=== PATIENT | female | born 1960 | race Caucasian/White ===

== ENCOUNTER 2023-03-18 09:12 | Emergency (ER) | payer OTHER, SELFPAY ==
[2023-03-18 09:20] VITALS: BP 101/68; PULSE 86; RESP 16; TEMP 36.7; O2SAT 97; BMI 30.1
== END 2023-03-18 10:36 | disposition left against medical advice (07) ==
PROVIDERS: Emergency Provider Family Medicine; PCP Family Medicine
DX: Z53.21 Procedure and treatment not carried out due to patient leaving prior to being seen by health care provider (principal)

== ENCOUNTER 2023-03-20 14:21 | Outpatient (CLI) | payer OTHER, SELFPAY ==
--- NOTE | 2023-03-20 14:40 | CRLHL7_ITS ---
For Patients: As a result of the Century Cures Act, medical imaging exams and procedure reports are released immediately into your electronic medical record. You may view this report before your referring provider. If you have questions, please contact your health care provider. BILATERAL SCREENING MAMMOGRAM WITH COMPUTER-AIDED DETECTION TECHNIQUE: CC and MLO views were obtained. These mammographic images have been obtained using full-field digital technique. These mammographic images were interpreted with the benefit of computer-aided detection. COMPARISON FILM: 09/24/21, 09/21/18, 07/10/17. FINDINGS: There are scattered areas of fibroglandular density IMPRESSION: There is no radiographic evidence for malignancy. ASSESSMENT: BI-RADS Category 1: Negative RECOMMENDATION: Routine screening mammogram in 1 year. A lay language report of this examination will be provided to the patient. Herbie Samuel M.D. Diagnostic Radiologist [email or web address] DARVIN/thom / be/Dictated by: Herbie Samuel MD @ 03/23/2023 8:36:00 AM (Electronically Signed)
== END 2023-03-20 14:22 | disposition home or self-care (01) ==
LOC: MAMMO 14:22
PROVIDERS: PCP Family Medicine; Visit Provider Family Medicine
DX: Z12.31 Encounter for screening mammogram for malignant neoplasm of breast (principal)
CPT/HCPCS: 77067

== ENCOUNTER 2023-03-31 14:30 | Outpatient (RCR) | payer OTHER, SELFPAY | END 2023-06-19 16:16 | disposition home or self-care (01) | PROVIDERS: PCP Family Medicine; Visit Provider Family Medicine | DX: M76.61 Achilles tendinitis, right leg (principal); M79.671 Pain in right foot; M62.81 Muscle weakness (generalized); M25.571 Pain in right ankle and joints of right foot; Z51.89 Encounter for other specified aftercare | CPT/HCPCS: 97110; 97161 ==

== ENCOUNTER 2024-03-21 09:46 | Outpatient (CLI) | payer OTHER, SELFPAY ==
--- OUTSIDE RECORDS SUMMARY | 2024-03-21 09:50 | XMS_ITS | Encounter Summary ---
Author Organization [facility] Address [address] [place] [address] Care Team Providers Care Securities Supervisor Name Role Phone Jordan Galeana M.D. Primary Care Provider [phone] Encounter Details Date Type Department Care Team (Late st Contact Info) Description 01/18/2024 1:20 PM CDT Ancillary Procedure Department of Family Medicine Social History Tobacco Use Types Packs/Day Years Used Date Smoking Tobacco: Never Smokeless Tobacco: Never Alcohol Use Standard Drinks/Week Comments Yes 1 (1 standard drink = 0.6 oz pur e alcohol) [facility] Utilities Answer Date Recorded In the past 12 months has e electric, gas, oil, or water company threatened to shut off services in your home? No 08/24/2023 PHQ-2 Answer Date Recorded PHQ-2 Score 0 08/24/2023 Exercise Vital Sign Answer Date Recorde d Days of Exercise per Week Not on file 2023 On average, how many minutes do you engage in exercise at this level? 30 min 08/24/2023 Hunger Vital Sign Answer Date Recorded Within the past 12 months, y ou worried that your food would run out before you got the money to buy more. Never true 08/24/19 24 Within the past 12 months, t he food you bought just didn't last and you didn't have money to get more. Never true 08/24/2023 PRAPARE - Transportation Answer Date Re corded In the past 12 months, has l ack of transportation kept you from medical appointments or from getting medications? No 03/2024 In the past 12 months, has l ack of transportation kept you from meetings, work, or from getting things needed for daily living? No 08/24/2023 Nutrition Answer Date Recorded On average, how many serving s of fruits and vegetables do you eat per day (serving size is equal to 1 cup or approximately the size of a tennis ball)? 0-2 08/24/2023 Dental Answer Date Recorded Dental: Regular Dentist No 08/24/19 Employment Answer Date Recorded Employment status Retired 08/24/2023 Housing Stability Answer Date Recorded What is your living situation today? I have a [facility] place to live 08/24/2023 Sex and Gender Information Value Date Recorded Sex Assigned at Female 08/24/2023 9:12 PM VIRTUAL ASSISTANT FOR ADVERTISERS Gender Identity Female 08/24/2023 9:12 PM VIRTUAL ASSISTANT FOR ADVERTIS[employer] Sexual Orientation Straight 08/24/2023 9: 12 PM VIRTUAL ASSISTANT FOR ADVERTIS[employer] documented as of this encounter Plan of Treatment Not on file documented as of this encounter Procedures Procedure Name Priority Date/Time Associated Diagnosis Comments FAMILY MEDICINE IMAGE EXAM Routine 01/18/2024 1:20 PM CDT documented in this encounter Results * Leg-Family Medicine Image Exam (01/18/2024 1:20 PM CDT) 01/18/2024 1:20 PM CDT Narrative IIMS - 01/18/2024 1:22 PM CDT This order has been created and auto-finalized to support the import of images acquired without order. The clinical documentation to support these images can be found on the encounter that produced images. Provider Not In System IMG NON RAD IMAGI NG PROCEDURES IIFL NA documented in this encounter Visit Diagnoses Not on filedocumented in this encounter Care Teams Securities Supervisor Relationship Specialty Start Date End Date Jordan Galeana M.D. [address] [place], [place] [address] PCP - General Family Medicine 09/17/23 documented as of this encounter
--- OUTSIDE RECORDS SUMMARY | 2024-03-21 09:50 | XMS_ITS | Encounter Summary ---
Author Organization [facility] Address [address] [place] [address] Care Team Providers Care Sleeve Setter Name Role Phone Jordan Galeana M.D. Primary Care Provider [phone] Reason for Visit * Reason Comments Other Left lower upper leg bug bite with red and tender around the area from last week and yesterday started feeling not good. Encounter Details Date Type Department Care Team (Late st Contact Info) Description 01/18/2024 1:30 PM CDT Office Visit Department of Family Medicine in [place], [place] [address] [place] [phone] Jordan Galeana M.D. [address] [place] [address] Insect Bite (Includes Tick) Nonvenomous Left Lower Leg Initial (Primary Dx) Social History Tobacco Use Types Packs/Day Years Used Date Smoking Tobacco: Never Smokeless Tobacco: Never Tobacco Cessation:Counseling Given: Yes Alcohol Use Standard Drinks/Week Comments Yes 1 (1 standard drink = 0.6 oz pur e alcohol) [facility] Utilities Answer Date Recorded In the past [...] your living situation today? I have a [facility] place to live 08/24/2023 Sex and Gender Information Value Date Recorded Sex Assigned at Female 08/24/2023 9:12 PM SPORTS BOOKMAKER Gender Identity Female 08/24/2023 9:12 PM SPORTS BOOKMAKER Sexual Orientation Straight 08/24/2023 9: 12 PM SPORTS BOOKMAKER documented as of this encounter Last Filed Vital Signs Vital Sign Reading Time Taken Comments Blood Pressure 107/71 01/18/2024 1:13 PM CDT Pulse 81 01/18/2024 1:13 PM CDT Temperature 36 ??C (96.8 ??F) 01/18/2024 1:13 PM CDT Respiratory Rate - - Oxygen Saturation - - Inhaled Oxygen Concentration - - Weight 68.5 kg (151 lb) 01/18/2024 1:13 PM CDT Height - - Body Mass Index 29.26 08/25/2023 9:10 AM SPORTS BOOKMAKER documented in this encounter Progress Notes * Jordan Galeana M.D. - 01/18/2024 1:30 PM CDT SUBJECTIVE CHIEF COMPLAINT / REASON FOR VISIT Kim Brown is a 63 y.o. female who presents for evaluation of Other (Left lower upper leg bug bite with red and tender around the area from last week and yesterday started feeling not good.). HISTORY OF PRESENT ILLNESS 63-year-old female presents today for left lower leg bug bite on Thursday, initially was very painful, then redness has spreading and tender at the area with touch. She has generally not feeling wellyesterday, no fever. She did not remove any tick from her lower leg. The following portions of the patient's history were reviewed and updated as appropriate: allergies, current medications, family history, medical history, social history, surgical history, and problem list. OBJECTIVE BP 107/71 (BP Location: Right arm, Patient Position: Lying, Cuff Size: Regular) Pulse 81 Temp 36 ??C (Temporal) Wt 68.5 kg BMI 29.26 kg/m?? PHYSICAL EXAM Constitutional General: She is not in acute distress. Skin General: Skin is warm. Findings: Rash present. Comments: Left lower leg lateral posterior middle section red angel in the center with redness surrounding the angel. No discharge. Area is mildly tender. Neurological Mental Status: She is alert. ASSESSMENT / PLAN #1 Insect Bite (Includes Tick) Nonvenomous Left Lower Leg Initial No tick removed at left lower leg, bug bite was unknown type. Unlikely tick. Will check labs, doxycycline to cover for possible bug related infection. Discussed plan as above, she agreed. - CBC with Differential, Blood; Future; Expected date: 01/18/2024 - Basic Metabolic Panel; Future; Expected date: 01/18/2024 - Basic Metabolic Panel - CBC with Differential, Blood Other orders - doxycycline hyclate (VIBRAMYCIN) 100 mg capsule; Take 1 capsule (100 mg total) by mouth 2 (two) times a day for 7 days., Starting Thu01/18/2024, Until Thu01/25/2024, Normal She has mammogram scheduled in March already at outside facility. documented in this encounter Plan of Treatment Not on file documented as of this encounter Procedures Procedure Name Priority Date/Time Associated Diagnosis Comments CBC WITH DIFFERENTIAL, B Routine 01/18/2024 1:30 PM CDT Insect Bite (Includes Tick) Nonvenomous Left Lower Leg Initial BASIC METABOLIC PANEL, S/P Routine 01/18/2024 1:30 PM CDT Insect Bite (Includes Tick) Nonvenomous Left Lower Leg Initial documented in this encounter Results * Basic Metabolic Panel (01/18/2024 1:30 PM CDT) Potassium, P 5.0 3.6 - 5.2 mmol/L 01/18/2024 3:53 PM CDT [facility] Sodium, P 138 135 - 145 mmol/L 01/18/2024 3:53 PM CDT [facility] Chloride, P 101 98 - 107 mmol/L 01/18/2024 3:53 PM CDT [facility] Bicarbonate, P 29 22 - 29 mmol/L 01/18/2024 3:53 PM CDT [facility] Anion Gap, P 8 7 - 15 01/18/2024 3:53 PM CDT [facility] BUN (Blood Urea Nitrogen), P 13 6 - 21 mg/dL 01/18/2024 3:53 PM CDT [facility] Creatinine 0.98 0.59 - 1.04 mg/dL 01/18/2024 3:53 PM CDT [facility] Estimated GFR (eGFR) 65 >=60 mL/min/BSA 01/18/2024 3:53 PM CDT NPR[facility] Comment: Estimated GFR calculated using the 2020 CKD_EPI creatinine equation. Calcium, Total, P 9.6 8.8 - 10.2 mg/dL 01/18/2024 3:53 PM CDT [facility] Glucose, P 91 70 - 140 mg/dL 01/18/2024 3:53 PM CDT [facility] Blood (Blood, Venous) 01/18/2024 1:30 PM CDT 01/18/2024 3:30 PM CDT Jordan Galeana M.D. LAB BLOOD ADD-ON [facility] [address] [facility] [place] [address], [place] NPRG [facility] [address] [place] [address] * CBC with Differential, Blood (01/18/2024 1:30 PM CDT) [facility] Hemoglobin 14.0 11.6 - 15.0 g/dL 01/18/2024 2:07 PM CDT [facility] Hematocrit 42.3 35.5 - 44.9 % 01/18/2024 2:07 PM CDT [facility] Erythrocytes 4.48 3.92 - 5.13 x10(12)/L 01/18/2024 2:07 PM CDT [facility] MCV 94.4 78.2 - 97.9 fL 01/18/2024 2:07 PM CDT [facility] RBC Distrib Width 13.2 12.2 - 16.1 % 01/18/2024 2:07 PM CDT [facility] Platelet Count 307 157 - 371 x10(9)/L 01/18/2024 2:07 PM CDT [facility] Leukocytes 5.0 3.4 - 9.6 x10(9)/L 01/18/2024 2:07 PM CDT [facility] Neutrophils 2.40 1.56 - 6.45 x10(9)/L 01/18/2024 2:07 PM CDT [facility] Lymphocytes 2.06 0.95 - 3.07 x10(9)/L 01/18/2024 2:07 PM CDT [facility] Monocytes 0.38 0.26 - 0.81 x10(9)/L 01/18/2024 2:07 PM CDT [facility] Eosinophils 0.09 0.03 - 0.48 x10(9)/L 01/18/2024 2:07 PM CDT [facility] Basophils <0.04 0.01 - 0.08 x10(9)/L 01/18/2024 2:07 PM CDT [facility] Blood (Blood, Venous) 01/18/2024 1:30 PM CDT 01/18/2024 1:43 PM CDT Jordan Galeana M.D. LAB BLOOD ADD-ON [facility] [address] [place] [address], [facility] NPRG [facility] [address] [place] [address] documented in this encounter Visit Diagnoses Diagnosis Insect Bite (Includes Tick) Nonvenomous Left Lower Leg Initial- Primary documented in this encounter Care Teams Sleeve Setter Relationship Specialty Start Date End Date Jordan Galeana M.D. [address] [place] [phone] PCP - General Family Medicine 09/17/23 documented as of this encounter
--- OUTSIDE RECORDS SUMMARY | 2024-03-21 09:50 | XMS_ITS ---
Author Organization [facility] Address [address] [place] [address] Care Team Providers Care Train Braker Name Role Phone Unavailable Unavailable Unavailable Surgery Details Not on file Complications Check Surgery Details section. Procedure Estimated Blood Loss Check Surgery Details section. Procedure Findings Check Surgery Details section. Procedure Specimens Taken Check Surgery Details section.
--- OUTSIDE RECORDS SUMMARY | 2024-03-21 09:50 | XMS_ITS | Referral Summary ---
Author Organization [facility] Address [address] [place] [address] Care Team Providers Care Beadworker Name Role Phone Jordan Galeana M.D. Primary Care Provider Source Comments Patient records contain information from all sites at [facility]. For routine questions regarding patient records, call [phone] during business hours, M-F 8:00 AM - 5:00 PM Central Time. Record requests for emergency care only can be directed to [phone] at any time.[facility] Encounters Date Type Department Care Team Description 03/14/2024 Clinical Communication Department of Radiology in [place], [place] [address] [place] [address] Zeynep Blackwood M.D. external referral MRI 01/18/2024 1:20 PM CDT Ancillary Procedure Department of Family Medicine 01/18/2024 1:30 PM CDT Office Visit Department of Family Medicine in [place], [place] [address] [place] [address] Jordan Galeana M.D. Insect Bite (Includes Tick) Nonvenomous Left Lower Leg Initial (Primary Dx) from Last 3 Months Allergies Active Allergy Reactions Criticality Noted Date Comments Amitriptyline Other (see comments) 01/22/2010 Elavil Amoxicillin-Pot Clavulanate Other (see comments) 01/22/2010 Celecoxib Diarrhea,GI intolerance 01/22/2010 celebrex Droperidol Edema, suggestive of allergic reaction, i.e., lip, tongue, or throat swelling High 01/22/2010 inapsine Ibuprofen GI intolerance 01/22/2010 Motrin Morphine Cough,Rash 01/22/2010 Neuromuscular Blockers, Steroidal Other (see comments) 03/31/2011 Had many adverse reactions from Epidural Steroid Injection Nifedipine Other (see comments),Nausea Only 11/24/2013 Propoxyphene N-Acetaminophen Diarrhea 01/22/2010 darvocet Medications Medication Sig Dispensed Refills Start Date End Date Status multivit-min/folic acid/oze904 (ALIVE WOMEN'S GUMMY VITAMINS ORAL) Take by mouth daily. Active SUMAtriptan (IMITREX) 100 mg tablet Take 1 tablet (100 mg total) by mouth as needed for migraine. May repeat dose once in 2 hours if migraine is unresolved. Do not exceed 200 mg in 24 hours. 9 tablet 11 10/12/2023 Active Active Problems Problem Noted Date Diagnosed Date Persistent Migraine Aura Wit hout Cerebral Infarction Not Intractable Without Status Migrainosus 08/25/2023 Obesity Body Mass Index 30-39.9 Adult 08/25/2023 Rhinitis Seasonal 01/22/2010 Immunizations Name Administration Dates Next Due H1N1 Inj 03/28/2012,08/16/2009 Influenza (IM) Preservative Free 04/25/2016,03/18 Influenza TIV (IM) 04/15/2017, 6,04/25/2014,2012,03/28/2012,04/14/2010,05/03/2009 Influenza, Injectable, Mdck, Preservative Free, Quadrivalent 06/02/2023,05/10/2020 Influenza, Injectable, Quadrivalent 04/17/2019 Influenza, Seasonal, Injectable 04/24/20 14,04/19/2013,03/28/2012,2008,06/08/2008,07/05/2007,08/03/2000 Influenza, Unspecified 04/17/2014 RZV (SHINGRIX) 11/14/2020,09/14/2020 Td (Adult), adsorbed 09/20/2004 Tdap 12/12/2013,09/20/2004,06/09/1996 influenza vaccine quad (FLUZONE/FLUARIX) (6 months and older)(PF) 05/12/2022,05/07/2021,04/26/2019,2017,04/13/2015 Social History Tobacco Use Types Packs/Day Years Used Date Smoking Tobacco: Never Smokeless Tobacco: Never Tobacco Cessation:Counseling Given: Yes Alcohol Use Standard Drinks/Week Comments Yes 1 (1 standard drink = 0.6 oz pur e alcohol) [facility] Utilities Answer Date Recorded In the past 12 months has th e electric, gas, oil, or water company [...] Date Recorded Dental: Regular Dentist No 08/24/19 24 Employment Answer Date Recorded Employment status Retired 08/24/2023 Housing Stability Answer Date Recorded What is your living situation today? I have a [facility] place to live 08/24/2023 Sex and Gender Information Value Date Recorded Sex Assigned at Female 08/24/2023 9:12 PM CORRECTIONAL COOK Gender Identity Female 08/24/2023 9:12 PM CORRECTIONAL COOK Sexual Orientation Straight 08/24/2023 9: 12 PM CORRECTIONAL COOK Last Filed Vital Signs Vital Sign Reading Time Taken Comments Blood Pressure 107/71 01/18/2024 1:13 PM CDT Pulse 81 01/18/2024 1:13 PM CDT Temperature 36 ??C (96.8 ??F) 01/18/2024 1:13 PM CDT Respiratory Rate 17 10/12/2023 9:46 AM CORRECTIONAL COOK Oxygen Saturation 99% 10/12/2023 9:46 AM CORRECTIONAL COOK Inhaled Oxygen Concentration - - Weight 68.5 kg (151 lb) 01/18/2024 1:13 PM CDT Height 153 cm (5' 0.24) 08/25/2023 9:10 AM CORRECTIONAL COOK Body Mass Index 29.26 08/25/2023 9:10 AM CORRECTIONAL COOK Plan of Treatment Not on file Procedures Procedure Name Priority Date/Time Associated Diagnosis Comments CBC WITH DIFFERENTIAL, B Routine 01/18/2024 1:30 PM CDT Insect Bite (Includes Tick) Nonvenomous Left Lower Leg Initial BASIC METABOLIC PANEL, S/P Routine 01/18/2024 1:30 PM CDT Insect Bite (Includes Tick) Nonvenomous Left Lower Leg Initial FAMILY MEDICINE IMAGE EXAM Routine 01/18/2024 1:20 PM CDT HPV WITH GENOTYPING, PCR, THINPREP Routine 10/12/2023 11:15 AM CORRECTIONAL COOK LIPID PANEL, S Routine 08/26/2023 9:11 AM CORRECTIONAL COOK Screening Lipid from Last 3 Months or Most Recently Relevant to Health Maintenance Results * CBC with Differential, Blood (01/18/2024 1:30 PM CDT) Hemoglobin 14.0 11.6 - 15.0 g/dL 01/18/2024 [...] CDT Jordan Galeana M.D. LAB BLOOD ADD-ON [facility] [address] [place] [address], [facility] NPRG [facility] [address] [place] [address] * Basic Metabolic Panel (01/18/2024 1:30 PM CDT) [facility] Potassium, P 5.0 3.6 - 5.2 mmol/L [...] CDT Jordan Galeana M.D. LAB BLOOD ADD-ON [facility] [address] [place] [address], [place] NPR[facility] [address] [place] [address] * Leg-Family Medicine Image Exam (01/18/2024 1:20 PM CDT) 01/18/2024 1:20 PM CDT Narrative IIMS - 01/18/2024 1:22 PM CDT This order has been created and auto-finalized to support the import of images acquired without order. The clinical documentation to support these images can be found on the encounter that produced images. Provider Not In System IMG NON RAD IMAGI NG PROCEDURES IIIL NA * (ABNORMAL) HPV with Genotyping, PCR, ThinPrep (10/12/2023 11:15 AM CORRECTIONAL COOK) HPV with Genotyping, ThinPrep, PCR Positive(A) Negative 10/14/2023 10:43 AM CORRECTIONAL COOK [facility] Comment: Positive for high risk HPV by nucleic acid amplification. Positive for one or more of the following high risk types: 16, 18, 31, 33, 35, 39, 45, 51, 52, 56, 58, 59, 66, and 68. See genotyping result. HPV High Risk type 16, PCR Negative Negative 10/14/2023 10:43 AM CORRECTIONAL COOK [facility] HPV High Risk type 18/45, PCR Negative Negative 10/14/2023 10:43 AM CORRECTIONAL COOK [facility] 10/12/2023 11:1 5 AM CORRECTIONAL COOK 10/13/2023 7:26 AM CORRECTIONAL COOK Jordan Galeana M.D. LAB MICROBIOLOGY - G ENERAL ORDERABLES [facility] [place] [address], [facility] [address] [place] [address] * (ABNORMAL) Lipid Panel (08/26/2023 9:11 AM CORRECTIONAL COOK) Triglycerides 112 mg/dL 08/26/2023 10:38 AM [facility] NPR Comment: ----REFERENCE VALUE---- Normal: <150 mg/dL Borderline High: 150-199 mg/dL High: 200-499 mg/dL Very High: > or =500 mg/dL Cholesterol, Total 266(H) mg/dL 2023 10:38 AM [facility] NPRG Comment: ----REFERENCE VALUE---- Desirable: < 200 mg/dL Borderline High: 200 - 239 mg/dL High: > or = 240 mg/dL Cholesterol, LDL, Calculated 170(H) mg/dL 08/26/2023 10:38 AM [facility] NPRG Comment: ----REFERENCE VALUE---- Desirable: <100 mg/dL Above Desirable: 100-129 mg/dL Borderline High: 130-159 mg/dL High: 160-189 mg/dL Very High: >=190 mg/dL ----ADDITIONAL INFORMATION---- LDL cholesterol calculated using the Rhoades/NIH equation. Cholesterol, HDL 77 >=50 mg/dL 08/26/19 10:38 AM [facility] NPRG Cholesterol, Non-HDL, Calculated 189(H) mg/dL 08/26/2023 10:38 AM [facility] NPRG Comment: ----REFERENCE VALUE---- Desirable: <130 mg/dL Above Desirable: 130-159 mg/dL Borderline High: 160-189 mg/dL High: 190-219 mg/dL Very High: > or =220 mg/dL Fasting (8 HR or more) Yes 08/26/2023 10:12 AM CORRECTIONAL COOK [facility] Blood (Blood, Venous) 08/26/2023 9:11 AM CORRECTIONAL COOK 08/26/2023 10:12 AM CORRECTIONAL COOK Jordan Galeana M.D. LAB BLOOD ADD-ON [facility] [address] [place] [address], [facility] NPRG [facility] [address] [place] [address] from Last 3 Months or Most Recently Relevant to Health Maintenance Care Teams Beadworker Relationship Specialty Start Date End Date Jordan Galeana M.D. [address] [place] [address] PCP - General Family Medicine 09/17/23
--- OUTSIDE RECORDS SUMMARY | 2024-03-21 09:50 | XMS_ITS | Clinical Summary ---
Author Organization [facility] Address [address] [place] [address] Care Team Providers Care Supplier Diversity Director Name Role Phone Jordan Galeana M.D. Primary Care Provider Source Comments Patient records contain information from all sites at [facility]. For routine questions regarding patient records, call [phone] during business hours, M-F 8:00 AM - 5:00 PM Central Time. Record requests for emergency care only can be directed to [phone] at any time.[facility] Allergies Active Allergy Reactions Criticality Noted Date [...] Refills Start Date End Date Status multivit-min/folic acid/ird647 (ALIVE WOMEN'S GUMMY VITAMINS ORAL) Take by [...] Index 30-39.9 Adult 08/25/2023 Rhinitis Seasonal 01/22/2010 Encounters Date Type Department Care Team Description 03/14/2024 Clinical Communication Department of Radiology in [place], [place] [address] [place] [address] Zeynep Blackwood M.D. external referral MRI 01/18/2024 1:30 PM CDT Office Visit Department of Family Medicine in [place], [place] [address] [place] [address] Jordan Galeana M.D. Insect Bite (Includes Tick) Nonvenomous Left Lower Leg Initial (Primary Dx) 01/18/2024 1:20 PM CDT Ancillary Procedure Department of Family Medicine from Last 3 Months Immunizations Name Administration Dates Next Due H1N1 Inj 03/28/2012,08/16/2009 Influenza (IM) Preservative Free 04/25/2016,03/18 Influenza TIV (IM) 04/15/2017, 6,04/25/2014,2012,03/28/2012,04/14/2010,05/03/2009 Influenza, Injectable, Mdck, Preservative Free, Quadrivalent 06/02/2023,05/10/2020 Influenza, Injectable, Quadrivalent 04/17/2019 Influenza, Seasonal, Injectable 04/24/20 14,04/19/2013,03/28/2012,2008,06/08/2008,07/05/2007,08/03/2000 Influenza, Unspecified 04/17/2014 RZV (SHINGRIX) 11/14/2020,09/14/2020 Td (Adult), adsorbed 09/20/2004 Tdap 12/12/2013,09/20/2004,06/09/1996 influenza vaccine quad (FLUZONE/FLUARIX) (6 months and older)(PF) 05/12/2022,05/07/2021,04/26/2019,2017,04/13/2015 Family History Medical History Relation Name Comments Heart attack Brother Relation Name Status Comments Brother Father Mother Social History Tobacco Use Types Packs/Day Years Used Date Smoking Tobacco: Never Smokeless Tobacco: Never Tobacco Cessation:Counseling Given: Yes Alcohol Use Standard Drinks/Week Comments Yes 1 (1 standard drink = 0.6 oz pur e alcohol) [facility] Utilities Answer Date Recorded In the [...] your living situation today? I have a [facility] place to live 08/24/2023 Sex and Gender Information Value Date Recorded Sex Assigned at Female 08/24/2023 9:12 PM SALES ENABLEMENT ANALYST Gender Identity Female 08/24/2023 9:12 PM SALES ENABLEMENT ANALYST Sexual Orientation Straight 08/24/2023 9: 12 PM SALES ENABLEMENT ANALYST Last Filed Vital Signs Vital Sign Reading Time Taken Comments Blood Pressure 107/71 01/18/2024 1:13 PM CDT Pulse 81 01/18/2024 1:13 PM CDT Temperature 36 ??C (96.8 ??F) 01/18/2024 1:13 PM CDT Respiratory Rate 17 10/12/2023 9:46 AM SALES ENABLEMENT ANALYST Oxygen Saturation 99% 10/12/2023 9:46 AM SALES ENABLEMENT ANALYST Inhaled Oxygen Concentration - - Weight 68.5 kg (151 lb) 01/18/2024 1:13 PM CDT Height 153 cm (5' 0.24) 08/25/2023 9:10 AM SALES ENABLEMENT ANALYST Body Mass Index 29.26 08/25/2023 9:10 AM SALES ENABLEMENT ANALYST Plan of Treatment Health Maintenance Due Date Last Done Comments CT Colonography 1961 Cologuard 1960 Hepatitis C Screening 1960 DTaP,Tdap,and Td Vaccines (5 - Td or Tdap) 12/13/2023 12/12/2013, 09/20/2004, 09/20/2004, Additional history exists Mammogram 03/20/2024 03/20/2023 (Perf ormed elsewhere) Influenza Vaccine (#1) 2024 , 05/12/2022, 05/07/2021, Additional history exists Colonoscopy 10/11/2024 10/11/2019 (Perf ormed elsewhere), 06/16/2011 Colorectal Cancer Surveillance 10/11/2024 Fasting Glucose for Diabetes Screening 01/17/2027 01/18/2024, 08/26/2023 Lipid (Cholesterol) Screening 08/26/2028 08/26/2023 Cervical Cancer Screening 10/12/20282023, 10/12/2023, 08/03/2017, Additional history exists Zoster Vaccines Completed 11/14/2020, 09/14/2020 COVID-19 Vaccine Completed 05/16/2023, , 12/05/2021, Additional history exists Depression Screening (Annual PHQ-2) Completed 08/25/2023, 08/24/2023 Pneumococcal vaccine (0-64 years) Aged Out No longer eligible based on patient's age to complete this topic Procedures Procedure Name Priority Date/Time Associated Diagnosis Comments CBC WITH DIFFERENTIAL, B Routine 01/18/2024 1:30 PM CDT Insect Bite (Includes Tick) Nonvenomous Left Lower Leg Initial BASIC METABOLIC PANEL, S/P Routine 01/18/2024 1:30 PM CDT Insect Bite (Includes Tick) Nonvenomous Left Lower Leg Initial FAMILY MEDICINE IMAGE EXAM Routine 01/18/2024 1:20 PM CDT HPV WITH GENOTYPING, PCR, THINPREP Routine 10/12/2023 11:15 AM SALES ENABLEMENT ANALYST LIPID PANEL, S Routine 08/26/2023 9:11 AM SALES ENABLEMENT ANALYST Screening Lipid from Last 3 Months or [...] CDT Jordan Galeana M.D. LAB BLOOD ADD-ON [facility] [address] [place] [address], [place] NPRG [facility] [address] [place] [address] * Basic Metabolic Panel (01/18/2024 1:30 PM [...] CDT Jordan Galeana M.D. LAB BLOOD ADD-ON Performing Organization Address City/[facility]/ZIP Co de Phone Number [facility] [address] [place] [address], [facility] NPRG [facility] [address] [place] [address] * Leg-Family Medicine Image Exam (01/18/2024 1:20 PM CDT) 01/18/2024 1:20 PM CDT Narrative IIMS - 01/18/2024 1:22 PM CDT This order has been created and auto-finalized to support the import of images acquired without order. The clinical documentation to support these images can be found on the encounter that produced images. Provider Not In System IMG NON RAD IMAGI NG PROCEDURES Performing Organization Address [facility] Co de Phone Number IIMS NA * (ABNORMAL) HPV with Genotyping, PCR, ThinPrep (10/12/2023 11:15 AM SALES ENABLEMENT ANALYST) HPV with Genotyping, ThinPrep, PCR Positive(A) Negative 10/14/2023 10:43 AM SALES ENABLEMENT ANALYST MKTO Comment: Positive for high risk HPV by nucleic acid amplification. Positive for one or more of the following high risk types: 16, 18, 31, 33, 35, 39, 45, 51, 52, 56, 58, 59, 66, and 68. See genotyping result. HPV High Risk type 16, PCR Negative Negative 10/14/2023 10:43 AM SALES ENABLEMENT ANALYST MKTO HPV High Risk type 18/45, PCR Negative Negative 10/14/2023 10:43 AM SALES ENABLEMENT ANALYST MKTO 10/12/2023 11:1 5 AM SALES ENABLEMENT ANALYST 10/13/2023 7:26 AM SALES ENABLEMENT ANALYST Jordan Galeana M.D. LAB MICROBIOLOGY - G ENERAL ORDERABLES Performing Organization Address City/[facility]/ZIP Co de Phone Number [facility] [address] [place] [address], [facility] MKTO [address] [facility] [address] [place] [address] * (ABNORMAL) Lipid Panel (08/26/2023 9:11 AM SALES ENABLEMENT ANALYST) Triglycerides 112 mg/dL 08/26/2023 10:38 AM SALES ENABLEMENT ANALYST NPRG Comment: ----REFERENCE VALUE---- Normal: <150 mg/dL Borderline High: 150-199 mg/dL High: 200-499 mg/dL Very High: > or =500 mg/dL Cholesterol, Total 266(H) mg/dL 2023 10:38 AM SALES ENABLEMENT ANALYST NPRG Comment: ----REFERENCE VALUE---- Desirable: < 200 mg/dL Borderline High: 200 - 239 mg/dL High: > or = 240 mg/dL Cholesterol, LDL, Calculated 170(H) mg/dL 08/26/2023 10:38 AM SALES ENABLEMENT ANALYST NPRG Comment: ----REFERENCE VALUE---- Desirable: <100 mg/dL Above Desirable: 100-129 mg/dL Borderline High: 130-159 mg/dL High: 160-189 mg/dL Very High: >=190 mg/dL ----ADDITIONAL INFORMATION---- LDL cholesterol calculated using the Rhoades/NIH equation. Cholesterol, HDL 77 >=50 mg/dL 08/26/19 10:38 AM SALES ENABLEMENT ANALYST NPRG Cholesterol, Non-HDL, Calculated 189(H) mg/dL 08/26/2023 10:38 AM SALES ENABLEMENT ANALYST NPRG Comment: ----REFERENCE VALUE---- Desirable: <130 mg/dL Above Desirable: 130-159 mg/dL Borderline High: 160-189 mg/dL High: 190-219 mg/dL Very High: > or =220 mg/dL Fasting (8 HR or more) Yes 08/26/2023 10:12 AM SALES ENABLEMENT ANALYST NPRG Blood (Blood, Venous) 08/26/2023 9:11 AM SALES ENABLEMENT ANALYST 08/26/2023 10:12 AM SALES ENABLEMENT ANALYST Jordan Galeana M.D. LAB BLOOD ADD-ON [facility] [address] [place] [address], [facility] NPRG [facility] [address] [place] [address] from Last 3 Months or Most Recently Relevant to Health Maintenance Care Teams Supplier Diversity Director Relationship Specialty Start Date End Date Jordan Galeana M.D. [address] [place] [phone] PCP - General Family Medicine 09/17/23
--- OUTSIDE RECORDS SUMMARY | 2024-03-21 09:50 | XMS_ITS | Encounter Summary ---
Author Organization [facility] Address [address] [place] [address] Care Team Providers Care Hi Ranger Operator Name Role Phone Jordan Galeana M.D. Primary Care Provider Reason for Visit * Reason Onset Date Comments external referral MRI 03/14/2024 Encounter Details Date Type Department Care Team (Latest Contact Info) Description 03/14/2024 Clinical Communication Department of Radiology in [place], [place] [address] [place] [phone] Zeynep Blackwood M.D. [address] [place] [phone] external referral MRI Social History Tobacco Use Types Packs/Day Years Used Date Smoking Tobacco: Never Smokeless Tobacco: Never Alcohol Use Standard Drinks/Week Comments Yes 1 (1 standard drink = 0.6 oz pur e alcohol) [facility] Utilities Answer Date Recorded In the past 12 months has [employer], gas, oil, or water [employer] threatened to shut off services in your [...] your living situation today? I have a [facility] place to live 08/24/2023 Sex and Gender Information Value Date Recorded Sex Assigned at Female 08/24/2023 9:12 PM CHASSIS INSPECTOR Gender Identity Female 08/24/2023 9:12 PM CHASSIS INSPECTOR Sexual Orientation Straight 08/24/2023 9: 12 PM CHASSIS INSPECTOR documented as of this encounter Plan of Treatment Not on file documented as of this encounter Visit Diagnoses Not on filedocumented in this encounter Care Teams Hi Ranger Operator Relationship Specialty Start Date End Date Jordan Galeana M.D. [address] [place] [address] PCP - General Family Medicine 09/17/23 documented as of this encounter
--- OUTSIDE RECORDS SUMMARY | 2024-03-21 09:51 | XMS_ITS | Continuity of Care Document ---
Author Organization RACHELLE Quarles Address [address] [facility] [address] [place] [address] Phone Care Team Providers Care Glass Scullion Name Role Phone Corby LEAD PAINTER LEAD PAINTERDelaney Unavailable Unavailable Allergies, Adverse Reactions, Alerts Substance Reaction Status Criticality droperidol Active No Information ibuprofen Active No Information Medications Medication Instructions Dosage Effective Dates (start - stop) Status Comments NASONEX (unknown strength) unknown Not Available - Active Topamax 25 mg Tab Unknown sig code, RX from another provider - Active RELPAX (unknown strength) Unknown sig code, RX from another provider Not Available - Active Ultram 50 mg Tab Take one tab 3-4 times per day as needed forpain, med to last until 12/13/06. Try to decrease use - No Longer Active baclofen 10 mg Tab Take one tab BID po, three month mail order Rx for [facility] - No Longer Active Procedures Procedure Date Offic/outpt E&m Estab Low-mod 7 Injection One Or Two Groups Depomedrol 80mg Marcaine 30ml Lidocaine 50 Cc Local Tray Phys Therap Eval Applic Modal 1/> Areas; Ultras 07 Therap 1/> Areas/15 Min; Exerc 07 Offic/outpt E&m Estab Mod-hi 2 07 Offic/outpt E&m Estab Low-mod 6 Offic/outpt E&m Estab Low-mod 6 Therap 1/> Areas/15 Min; Exerc 06 Therap 1/> Areas/15 Min; Exerc 06 Offic/outpt E&m Estab [facility] 6 Phys Therap Eval Offic/outpt E&m Estab Low-mod 6 Offic/outpt E&m Estab Mod-ak 2 06 Offic/outpt E&m Estab Mod-ak 2 06 Inj Anes Facet Jt; Cerv/thor-1 06 Inj Anes Facet Jt; Cerv/thor-1 06 Inj Anes Facet Jt; Cerv/thor-e 06 Inj Anes Facet Jt; Cerv/thor-e 06 Inj Anes Facet Jt; Cerv/thor-e 06 Inj Anes Facet Jt; Cerv/thor-e 06 Fluoro Guid Needle-spine Inj P 06 Offic/outpt E&m Estab Mod-ak 2 06 Offic/outpt E&m Estab Mod-ak 2 06 Offic/outpt E&m Estab Mod-ak 2 06 Inj Not Lytic-epidur; Cerv/tho 06 Epidurography Rad S&i Offic/outpt E&m Estab [facility] Offic/outpt E&m Estab [facility] 2 05 Injection Three Or More Groups 05 Depomedrol 80mg Marcaine 30ml Lidocaine 50 Cc Phys Therap Eval Therap Activities 1-on- Ea 05 Offic/outpt E&m Estab [facility] 5 Offic/outpt E&m Estab [facility] 5 Offic/outpt E&m Estab [facility] 5 Offic/outpt E&m Estab [facility] 5 Advance Directives Directive Yes / No Effective Date File Name No Information Encounters Encounter Description Practice Location Reason(s) For Visit Diagnoses Date Provider Providers Copied on Encounter Offic/outpt E&m Estab Low-[facility], [address], [place], [place], [address], [place] tel:[phone] [facility] No Information 7 Corby LEAD PAINTER Delaney. [address], [place], [address], [place]. tel:[phone] Referring Provider: Herbie Garcia, [address] [place], [address]. tel:[phone] [facility], [address] [facility], [place], [place], [address], [place] tel:[phone] [facility] No Information 7 Domingo Stoner. [address] [facility] [address], [place], [address], [place]. tel:[phone] Referring Provider: Herbie Garcia, [address] [place], [address]. tel:[phone] [facility], [address] [facility], [place], [place], [address], [place] tel:[phone] [facility] No Information 7 O Hotto Vibha. [address], [place], [address], [place]. tel:[phone] Referring Provider: Herbie Garcia, [address] [place], [address]. tel:[phone] Offic/outpt E&m Estab Mod-hi 2 [facility], [address], [place], [place], [address], [place] tel:[phone] [facility] No Information 7 Corby LEAD PAINTER Delaney. [address], [facility], [place], [address], [place]. tel:[phone] Referring Provider: Herbie Garcia, [address] [place] [address], [address]. tel:[phone] [facility], [address], [place], [place], [address], [place] tel:[phone] No Information 7 [place] MANAGEMENT INFORMATION SYSTEMS DIRECTOR Erv. [address], [address], [place], [address], [place]. tel:[phone] Referring Provider: Herbie Garcia, [address] [place] [address], [address]. tel:[phone] Offic/outpt E&m Estab Low-mod [facility], [address], [place], [address], [place] tel:[phone] [facility] No Information 8200 6 [facility] MANAGEMENT INFORMATION SYSTEMS DIRECTOR Stephon. [address] , [address], [place], [place], [address], [place]. tel:[phone] Referring Provider: Herbie Garcia, [address] [place] [address], [address]. tel:[phone] Offic/outpt E&m Estab Low-mod [facility], [address], [place], [place], [address], [place] tel:[phone] [facility] No Information 6 Corby LEAD PAINTER Delaney. [address] [facility] [address], [place], [address], [place]. tel:[phone] Referring Provider: Herbie Garcia, [facility] [address] [place], [address]. tel:[phone] [facility], [address], [place], [place], [address], [place] tel:[phone] [facility] No Information 6 No Information Referring Provider: Herbie Garcia, [address] [place] [address], [address]. tel:[phone] [facility], [address], [place], [place], [address], [place] tel:[phone] [facility] No Information 6 No Information Referring Provider: Herbie Garcia, [address] [place] [address], [address]. tel:[phone] Offic/outpt E&m Estab Low-mod [facility], [address], [place], [place], [address], [place] tel:[phone] [facility] No Information 6 Corbychris Baltazar. [address] [facility] [address], [facility], [place], [address], [place]. tel:[phone] Referring Provider: Herbie Garcia, [address] [place] [address], [address]. tel:[phone] [facility], [address], [place], [place], [address], [place] tel:[phone] [facility] No Information 6 Barththien PT Ciara. [address], [address], [place], [place], [address], [place]. tel:[phone] Referring Provider: Herbie Garcia, [address] [place] [address], [address]. tel:[phone] Offic/outpt E&m Estab Low-mod [facility], [address], [place], [place], [address], [place] tel:[phone] [facility] No Information 9 6 Corby LEAD PAINTER Delaney. [address] [facility] [address], [facility], [place], [address], [place]. tel:[phone] Referring Provider: Herbie Garcia, [address] [place] [address], [address]. tel:[phone] Offic/outpt E&m Estab Mod-hi 2 [facility], [address] [facility] [address], [place], [place], [address], [place] tel:[phone] [facility] No Information 0 6 [place] MANAGEMENT INFORMATION SYSTEMS DIRECTOR Erv. [address] [facility] [address], [address], [place], [address], [place]. tel:[phone] Referring Provider: Herbie Garcia, [address] [place] [address], [address]. tel:[phone] Offic/outpt E&m Estab Mod-hi 2 [facility], [address] [facility] [address], [place], [place], [address], [place] tel:[phone] [facility] No Information 1200 6 Corby LEAD PAINTER Delaney. [address] [facility] [address], [facility], [place], [address], [place]. tel:[phone] Referring Provider: Herbie Garcia, [address] [place] [address], [address]. tel:[phone] [facility], [address], [place], [place], [address], [place] tel:[phone] [facility] No Information 8200 6 Domingo Stoner. [address] [facility] [address], [place], [place], [address], [place]. tel:[phone] Referring Provider: Herbie Garcia, [facility] [address] [place], [address]. tel:[phone] Offic/outpt E&m Estab Mod-hi 2 [facility], [address], [place], [place], [address], [place] tel:[phone] [facility] No Information 6 Corby LEAD PAINTER Delaney. [address] [facility] [address], [place], [address], [place]. tel:[phone] Referring Provider: Herbie Garcia, [address] [place], [address]. tel:[phone] Offic/outpt E&m Estab Mod-hi 2 [facility], [address] [facility] [address], [place], [place], [address], [place] tel:[phone] [facility] No Information 6 Corby LEAD PAINTER Delaney. [address] [facility] [address], [place], [address], [place]. tel:[phone] Referring Provider: Herbie Garcia, [address] [place], [address]. tel:[phone] Offic/outpt E&m Estab Mod-hi 2 [facility], [address] [facility] [address], [place], [place], [address], [place] tel:[phone] [facility] No Information 6 Corby LEAD PAINTER Delaney. [address] [facility] [address], [facility], [place], [address], [place]. tel:[phone] Referring Provider: Herbie Garcia, [address] [place], [address]. tel:[phone] [facility], [address], [place], [place], [address], [place] tel:[phone] [facility] No Information 6 Domingo Stoner. [address], [place], [place], [address], [place]. tel:[phone] Referring Provider: Herbie Garcia, [address] [place] [address], [address]. tel:[phone] Offic/outpt E&m Estab Low-mod [facility], [address] [facility] [address], [place], [address], [place] tel:[phone] [facility] No Information 5 Corby LEAD PAINTER Delaney. [address] [facility] [address], [place], [address], [place]. tel:[phone] Referring Provider: Herbie Garcia, [address] [place] [address], [address]. tel:[phone] Offic/outpt E&m Estab Mod-hi 2 [facility], [address], [place], [place], [address], [place] tel:[phone] [facility] No Information 5 Corby LEAD PAINTER Delaney. [address] [facility] [address], [place], [address], [place]. tel:[phone] Referring Provider: Herbie Garcia, [address] [place] [address], [address]. tel:[phone] [facility], [address] [facility] [address], [place], [address], [place] tel:[phone] [facility] No Information 5 Domingo Stoner. [address], [place], [place], [address], [place]. tel:[phone] Referring Provider: Herbie Garcia, [address] [place] [address], [address]. tel:[phone] [facility], [address], [place], [place], [address], [place] tel:[phone] [facility] No Information 5 O Hotto Vibha. [address], [place], [place], [address], [place]. tel:[phone] Referring Provider: Herbie Garcia, [facility] [address] [place], [address]. tel:[phone] Offic/outpt E&m Estab Low-mod [facility], [address] [facility], [place], [place], [address], [place] tel:[phone] [facility] No Information 5 Corby LEAD PAINTER Delaney. [address] [facility] [address], [place], [address], [place]. tel:[phone] Referring Provider: Herbie Garcia, [address] [place], [address]. tel:[phone] Offic/outpt E&m Estab Low-mod [facility], [facility], [address], [place], [place], [address], [place] tel:[phone] [facility] No Information 5 Ocrby LEAD PAINTER Delaney. [address] [facility] [address], [place], [address], [place]. tel:[phone] Referring Provider: Herbie Garcia, [address] [place], [address]. tel:[phone] Offic/outpt E&m Estab Low-mod [facility], [facility], [address] [facility] [address], [place], [place], [address], [place] tel:[phone] [facility] No Information 1200 5 Corby LEAD PAINTER Delaney. [address] [facility] [address], [place], [address], [place]. tel:[phone] Referring Provider: Herbie Britton, [address] [facility], [place], [address]. tel:[phone] Offic/outpt E&m Estab Low-mod [facility], [facility], [address] [facility] [facility] [address], [place], [place], [address], [place] tel:[phone] [facility] No Information 3 0-200 5 Corby LEAD PAINTER Delaney. [address] [facility] [address], [place], [address], [place]. tel:[phone] Referring Provider: ALESSANDRA HERNANDEZ. [facility], [address] [facility], [place], [place], [address], [place] tel:[phone] [facility] No Information 0 3-200 5 Corby LEAD PAINTER Delaney. [address] [facility] [address], [place], [address], [place]. tel:[phone] Referring Provider: Herbie Antunez MD G, [address] [place], [address]. tel:[phone] Family History Family Member Type Diagnosis Age At Onset No Information Payers Payer name Insurance type Covered alliance party ID Niles stinson(s) Blue Plus BL [id number] Social History Type Description Quantity Date Captured Comments Sex Female Smoking Status No Information Chief Complaint And Reason For Visit No Information Reason For Referral Reason For Referral No Information History Of Present Illness Encounter Date Complaint History Of Prese nt Illness No Information Functional Status Date Functional Assessmen t No Information Instructions Date Instruction Additional Infor mation No Information Assessments Type Assessment Date No Information Patient Care Teams Name Effective Dates (start - stop) Status Members No Information
--- NOTE | 2024-03-21 10:15 | CRLHL7_ITS ---
For Patients: As a result of the Cures Act, medical imaging exams and procedure reports are released immediately into your electronic medical record. You may view this report before your referring provider. If you have questions, please contact your health care provider. BILATERAL SCREENING MAMMOGRAM WITH COMPUTER-AIDED DETECTION AND TOMOSYNTHESIS TECHNIQUE: CC and MLO views were obtained. These mammographic images have been obtained using full-field digital technique. These mammographic images were interpreted with the benefit of computer-aided detection. Breast Tomosynthesis was used in this interpretation. COMPARISON FILM: 03/20/23, 09/24/21, 07/10/17. FINDINGS: There are scattered areas of fibroglandular density IMPRESSION: There is no radiographic evidence for malignancy. ASSESSMENT: BI-RADS Category 1: Negative RECOMMENDATION: Routine screening mammogram in 1 year. A lay language report of this examination will be provided to the patient. Herbie Samuel M.D. Diagnostic Radiologist [email or web address] DARVIN/thom / be/Dictated by: Herbie Samuel MD @ 03/21/2024 10:31:00 AM (Electronically Signed)
== END 2024-03-21 09:47 | disposition home or self-care (01) ==
LOC: MAMMO 09:48
PROVIDERS: PCP Family Medicine; Visit Provider Family Medicine
DX: Z12.31 Encounter for screening mammogram for malignant neoplasm of breast (principal)
CPT/HCPCS: 77063; 77067

== ENCOUNTER 2024-04-04 19:51 | Outpatient (CLI) | payer OTHER, SELFPAY ==
--- OUTSIDE RECORDS SUMMARY | 2024-04-06 23:58 | XMS_ITS | Encounter Summary ---
Author Organization [facility] Address [address] [place] [address] Care Team Providers Care Hot Saw Helper Name Role Phone Jordan Galeana M.D. Primary Care Provider [phone] Reason for Visit * Reason Comments Other Left lower upper leg bug bite with red and tender around the area from last week and yesterday started feeling not good. Encounter Details Date Type Department Care Team (Late st Contact Info) Description 01/18/2024 1:30 PM CDT Office Visit Department of Family Medicine in [place], [place] [address] [place] [id number] Jordan Galeana M.D. [address] [place] [address] Insect Bite (Includes Tick) Nonvenomous Left Lower Leg Initial (Primary Dx) Social History Tobacco Use Types Packs/Day Years Used Date Smoking Tobacco: Never Smokeless Tobacco: Never Tobacco Cessation:Counseling Given: Yes Alcohol Use Standard Drinks/Week Comments Yes 1 (1 standard drink = 0.6 oz pur e alcohol) [facility] Utilities Answer Date Recorded In the [...] your living situation today? [facility] 08/24/2023 Sex and Gender Information Value Date Recorded Sex Assigned at Female 08/24/2023 9:12 PM ENVIRONMENTAL SERVICES PROJECT MANAGER Gender Identity Female 08/24/2023 9:12 PM ENVIRONMENTAL SERVICES PROJECT MANAGER Sexual Orientation Straight 08/24/2023 9: 12 PM ENVIRONMENTAL SERVICES PROJECT MANAGER documented as of this encounter Last Filed [...] Body Mass Index 29.26 08/25/2023 9:10 AM ENVIRONMENTAL SERVICES PROJECT MANAGER documented in this encounter Progress Notes * [...] CDT Jordan Galeana M.D. LAB BLOOD ADD-ON [facility] [address] [place] [address], [place] NPR[facility] [address] [place] [address] * CBC with Differential, Blood (01/18/2024 1:30 PM CDT) [facility] Hemoglobin 14.0 11.6 - 15.0 g/dL 01/18/2024 [...] CDT Jordan Galeana M.D. LAB BLOOD ADD-ON [facility] [address] [place] [address], [facility] [address] [place] [address] documented in this encounter Visit Diagnoses Diagnosis Insect Bite (Includes Tick) Nonvenomous Left Lower Leg Initial- Primary documented in this encounter Care Teams Hot Saw Helper Relationship Specialty Start Date End Date Jordan Galeana M.D. [address] [place] [address] PCP - General Family Medicine 09/17/23 documented as of this encounter
--- OUTSIDE RECORDS SUMMARY | 2024-04-06 23:58 | XMS_ITS | Clinical Summary ---
Author Organization [facility] Address [address] [place] [address] Care Team Providers Care Doughnut Icer Name Role Phone Jordan Galeana M.D. Primary Care Provider [phone] Source Comments Patient records contain information from all sites at [facility]. For routine questions regarding patient records, call [phone] during business hours, M-F 8:00 AM - 5:00 PM Central Time. Record requests for emergency care only can be directed to [phone] at any time.[facility] Allergies Active Allergy Reactions Criticality Noted Date [...] Refills Start Date End Date Status multivit-min/folic acid/wro089 (ALIVE WOMEN'S GUMMY VITAMINS ORAL) Take by [...] Encounters Date Type Department Care Team Description 03/22/2024 Orders Only [facility] HL[facility] MNT Jordan Galeana M.D. Screening Mammogram Breast Cancer 03/14/2024 Clinical Communication Department of Radiology in [place], [place] [address] [place] [address] Zeynep Blackwood M.D. external referral MRI 01/18/2024 1:30 PM CDT Office Visit Department of Family Medicine in [place], [place] [address] [place] [address] Jordan Galeana M.D. Insect Bite (Includes Tick) [...] drink = 0.6 oz pur e alcohol) [facility] Utilities Answer Date Recorded In the past 12 months has th e [employer], gas, oil, or water [employer] threatened to shut off services in your [...] money to buy more. Never true 08/24/19 Within the past 12 months, t he [...] your living situation today? I have a [facility] place to live 08/24/2023 Sex and Gender Information Value Date Recorded Sex Assigned at Female 08/24/2023 9:12 PM GRAIN THRESHER Gender Identity Female 08/24/2023 9:12 PM GRAIN THRESHER Sexual Orientation Straight 08/24/2023 9: 12 PM GRAIN THRESHER Last Filed Vital Signs Vital Sign Reading Time Taken Comments Blood Pressure 107/71 01/18/2024 1:13 PM CDT Pulse 81 01/18/2024 1:13 PM CDT Temperature 36 ??C (96.8 ??F) 01/18/2024 1:13 PM CDT Respiratory Rate 17 10/12/2023 9:46 AM GRAIN THRESHER Oxygen Saturation 99% 10/12/2023 9:46 AM GRAIN THRESHER Inhaled Oxygen Concentration - - Weight 68.5 kg (151 lb) 01/18/2024 1:13 PM CDT Height 153 cm (5' 0.24) 08/25/2023 9:10 AM GRAIN THRESHER Body Mass Index 29.26 08/25/2023 9:10 AM GRAIN THRESHER Plan of Treatment Health Maintenance Due Date Last Done Comments CT Colonography 1961 Cologuard 1960 Hepatitis C Screening 1960 DTaP,Tdap,and Td Vaccines (5 - Td or Tdap) 12/13/2023 12/12/2013, 09/20/2004, 09/20/2004, Additional history exists Influenza Vaccine (#1) 2024 , 05/12/2022, 05/07/2021, Additional history exists Colonoscopy 10/11/2024 10/11/2019 (Perf ormed elsewhere), 06/16/2011 Colorectal Cancer Surveillance 10/11/2024 Mammogram 03/21/2025 03/21/2024 (Perf ormed elsewhere), 03/21/2024 (Performed elsewhere), 03/21/2024 (Performed elsewhere), Additional history exists Fasting Glucose for Diabetes Screening 01/17/2027 01/18/2024, [...] GENOTYPING, PCR, THINPREP Routine 10/12/2023 11:15 AM GRAIN THRESHER LIPID PANEL, S Routine 08/26/2023 9:11 AM GRAIN THRESHER Screening Lipid from Last 3 Months or [...] Jordan Galeana M.D. LAB BLOOD ADD-ON [facility] [address] [place] [address], [facility] NPRG [facility] [address] [place] [address] * Basic Metabolic Panel (01/18/2024 1:30 PM [...] Jordan Galeana M.D. LAB BLOOD ADD-ON [facility] [address] [place] [address], [facility] NPRG [facility] [address] [place] [address] * Leg-Family Medicine Image Exam (01/18/2024 1:20 PM CDT) 01/18/2024 1:20 PM CDT Narrative IIMS - 01/18/2024 1:22 PM CDT This order has been created and auto-finalized to support the import of images acquired without order. The clinical documentation to support these images can be found on the encounter that produced images. Provider Not In System IMG NON RAD IMAGI NG PROCEDURES IIMS NA * (ABNORMAL) HPV with Genotyping, PCR, ThinPrep (10/12/2023 11:15 AM GRAIN THRESHER) HPV with Genotyping, ThinPrep, PCR Positive(A) Negative 10/14/2023 10:43 AM GRAIN THRESHER MKTO Comment: Positive for high risk HPV by nucleic acid amplification. Positive for one or more of the following high risk types: 16, 18, 31, 33, 35, 39, 45, 51, 52, 56, 58, 59, 66, and 68. See genotyping result. HPV High Risk type 16, PCR Negative Negative 10/14/2023 10:43 AM GRAIN THRESHER MKTO HPV High Risk type 18/45, PCR Negative Negative 10/14/2023 10:43 AM GRAIN THRESHER MKTO 10/12/2023 11:1 5 AM GRAIN THRESHER 10/13/2023 7:26 AM GRAIN THRESHER Jordan Galeana M.D. LAB MICROBIOLOGY - G ENERAL ORDERABLES [facility] [address] [place] [address], [facility] MKTO [address] [facility] [address] [place] [address] * (ABNORMAL) Lipid Panel (08/26/2023 9:11 AM GRAIN THRESHER) Triglycerides 112 mg/dL 08/26/2023 10:38 AM GRAIN THRESHER NPRG Comment: ----REFERENCE VALUE---- Normal: <150 mg/dL Borderline High: 150-199 mg/dL High: 200-499 mg/dL Very High: > or =500 mg/dL Cholesterol, Total 266(H) mg/dL 2023 10:38 AM GRAIN THRESHER NPRG Comment: ----REFERENCE VALUE---- Desirable: < 200 mg/dL Borderline High: 200 - 239 mg/dL High: > or = 240 mg/dL Cholesterol, LDL, Calculated 170(H) mg/dL 08/26/2023 10:38 AM GRAIN THRESHER NPRG Comment: ----REFERENCE VALUE---- Desirable: <100 mg/dL Above Desirable: 100-129 mg/dL Borderline High: 130-159 mg/dL High: 160-189 mg/dL Very High: >=190 mg/dL ----ADDITIONAL INFORMATION---- LDL cholesterol calculated using the Rhoades/NIH equation. Cholesterol, HDL 77 >=50 mg/dL 08/26/19 10:38 AM GRAIN THRESHER NPRG Cholesterol, Non-HDL, Calculated 189(H) mg/dL 08/26/2023 10:38 AM GRAIN THRESHER NPRG Comment: ----REFERENCE VALUE---- Desirable: <130 mg/dL Above Desirable: 130-159 mg/dL Borderline High: 160-189 mg/dL High: 190-219 mg/dL Very High: > or =220 mg/dL Fasting (8 HR or more) Yes 08/26/2023 10:12 AM GRAIN THRESHER NPRG Blood (Blood, Venous) 08/26/2023 9:11 AM GRAIN THRESHER 08/26/2023 10:12 AM GRAIN THRESHER Jordan Galeana M.D. LAB BLOOD ADD-ON [facility] [address] [place] [address], [place] NPRG [facility] [address] [place] [address] from Last 3 Months or Most Recently Relevant to Health Maintenance Care Teams Doughnut Icer Relationship Specialty Start Date End Date Jordan Galeana M.D. [address] [place] [address] PCP - General Family Medicine 09/17/23
--- OUTSIDE RECORDS SUMMARY | 2024-04-06 23:58 | XMS_ITS ---
Author Organization [facility] Address [address] [place] [address] Care Team Providers Care Hospital Carrier Name Role Phone Unavailable Unavailable Unavailable Surgery Details Not on file Complications Check Surgery Details section. Procedure Estimated Blood Loss Check Surgery Details section. Procedure Findings Check Surgery Details section. Procedure Specimens Taken Check Surgery Details section.
--- OUTSIDE RECORDS SUMMARY | 2024-04-06 23:58 | XMS_ITS | Encounter Summary ---
Author Organization [facility] Address [address] [place] [address] Care Team Providers Care Hand Spinner Name Role Phone Jordan Galeana M.D. Primary Care Provider [phone] Encounter Details Date Type Department Care Team (Late st Contact Info) Description 01/18/2024 1:20 PM CDT Ancillary Procedure Department of Family Medicine Social History Tobacco Use Types Packs/Day Years Used Date Smoking Tobacco: Never Smokeless Tobacco: Never Alcohol Use Standard Drinks/Week Comments Yes 1 (1 standard drink = 0.6 oz pur e alcohol) [facility] Utilities Answer Date Recorded In the [...] your living situation today? I have a [facility] place to live 08/24/2023 Sex and Gender Information Value Date Recorded Sex Assigned at Female 08/24/2023 9:12 PM MATERIALS MGMT TECH Gender Identity Female 08/24/2023 9:12 PM MATERIALS MGMT TECH Sexual Orientation Straight 08/24/2023 9: 12 PM MATERIALS MGMT TECH documented as of this encounter Plan of [...] System IMG NON RAD IMAGI NG PROCEDURES IIMO NA documented in this encounter Visit Diagnoses Not on filedocumented in this encounter Care Teams Hand Spinner Relationship Specialty Start Date End Date Jordan Galeana M.D. [address] [place], [place] [address] PCP - General Family Medicine 09/17/23 documented as of this encounter
--- OUTSIDE RECORDS SUMMARY | 2024-04-06 23:58 | XMS_ITS | Encounter Summary ---
Author Organization [facility] Address [address] [place] [address] Care Team Providers Care Hospital Staff Pharmacist Name Role Phone Jordan Galeana M.D. Primary Care Provider [phone] Reason for Referral * Outpatient (Routine) - Authorized Specialty Diagnoses / Procedures Referred By Controsita t Referred To Contact Diagnoses Screening Mammogram Breast Cancer Procedures BI Breast Screening Bilateral with Tomosynthesis Jordan Galeana M.D. [address] [place] [address] [facility] Referral ID Status Reason Start Date Expiration Date V isits Requested Visits Authorized [id number] Authorized 03/22/2024 03/22/2025 1 1 Encounter Details Date Type Department Care Team (Late st Contact Info) Description 03/22/2024 Orders Only [facility] PCP HLTH MNT Jordan Galeana M.D. [address] [place] [phone] Screening Mammogram Breast Cancer Social History Tobacco Use Types Packs/Day Years Used Date Smoking Tobacco: Never Smokeless Tobacco: Never Alcohol Use Standard Drinks/Week Comments Yes 1 (1 standard drink = 0.6 oz pur e alcohol) [facility] Utilities Answer Date Recorded In the past 12 months has [employer], gas, oil, or water company threatened [...] your living situation today? I have a [facility] place to live 08/24/2023 Sex and Gender Information Value Date Recorded Sex Assigned at Female 08/24/2023 9:12 PM CONDEMNATION ENGINEER Gender Identity Female 08/24/2023 9:12 PM CONDEMNATION ENGINEER Sexual Orientation Straight 08/24/2023 9: 12 PM CONDEMNATION ENGINEER documented as of this encounter Plan of Treatment Scheduled Orders Name Type Priority Associated Diagnoses Order Schedule BI Breast Screening Bilateral with Tomosynthesis Imaging RAD - Routine (most inpatients and all outpatients) Screening Mammogram Breast Cancer Expected: 04/21/2024, Expires: 09/18/2024 documented as of this encounter Visit Diagnoses Diagnosis Screening Mammogram Breast Cancer documented in this encounter Care Teams Hospital Staff Pharmacist Relationship Specialty Start Date End Date Jordan Galeana M.D. [address] [place] [address] PCP - General Family Medicine 09/17/23 documented as of this encounter
--- OUTSIDE RECORDS SUMMARY | 2024-04-06 23:58 | XMS_ITS | Referral Summary ---
Author Organization [facility] Address [address] [place] [address] Care Team Providers Care Deicer Tester Name Role Phone Jordan Galeana M.D. Primary Care Provider Source Comments Patient records contain information from all sites at [facility]. For routine questions regarding patient records, call [phone] during business hours, M-F 8:00 AM - 5:00 PM Central Time. Record requests for emergency care only can be directed to [phone] at any time.[facility] Encounters Date Type Department Care Team Description 03/22/2024 Orders Only [facility] [place] Jordan Galeana M.D. Screening Mammogram Breast Cancer 03/14/2024 Clinical Communication Department of Radiology in [place], [place] [address] [place] [address] Zeynep Blackwood M.D. external referral MRI 01/18/2024 1:20 PM CDT Ancillary Procedure Department of Family Medicine 01/18/2024 1:30 PM CDT Office Visit Department of Family Medicine in [place], [place] [address] [place] [address] Jordan Galeana M.D. Insect Bite (Includes Tick) [...] Refills Start Date End Date Status multivit-min/folic acid/hck125 (ALIVE WOMEN'S GUMMY VITAMINS ORAL) Take by [...] drink = 0.6 oz pur e alcohol) [facility] Utilities Answer Date Recorded In the past 12 months has th e [employer] gas, oil, or water [employer] threatened to shut off services in your [...] your living situation today? I have a [facility] place to live 08/24/2023 Sex and Gender Information Value Date Recorded Sex Assigned at Female 08/24/2023 9:12 PM CLOTH CARRIER Gender Identity Female 08/24/2023 9:12 PM CLOTH CARRIER Sexual Orientation Straight 08/24/2023 9: 12 PM CLOTH CARRIER Last Filed Vital Signs Vital Sign Reading Time Taken Comments Blood Pressure 107/71 01/18/2024 1:13 PM CDT Pulse 81 01/18/2024 1:13 PM CDT Temperature 36 ??C (96.8 ??F) 01/18/2024 1:13 PM CDT Respiratory Rate 17 10/12/2023 9:46 AM CLOTH CARRIER Oxygen Saturation 99% 10/12/2023 9:46 AM CLOTH CARRIER Inhaled Oxygen Concentration - - Weight 68.5 kg (151 lb) 01/18/2024 1:13 PM CDT Height 153 cm (5' 0.24) 08/25/2023 9:10 AM CLOTH CARRIER Body Mass Index 29.26 08/25/2023 9:10 AM CLOTH CARRIER Plan of Treatment Not on file Procedures [...] GENOTYPING, PCR, THINPREP Routine 10/12/2023 11:15 AM CLOTH CARRIER LIPID PANEL, S Routine 08/26/2023 9:11 AM CLOTH CARRIER Screening Lipid from Last 3 Months or [...] CDT Jordan Galeana M.D. LAB BLOOD ADD-ON [facility] [address] [place] [address], [facility] NPRG [facility] [address] [place] [address] * Basic Metabolic Panel (01/18/2024 1:30 PM [...] CDT Jordan Galeana M.D. LAB BLOOD ADD-ON [facility] [address] [place] [address], [facility] NPRG [facility] [address] [place] [address] * Leg-Family Medicine Image Exam (01/18/2024 1:20 PM CDT) 01/18/2024 1:20 PM CDT Narrative IIMS - 01/18/2024 1:22 PM CDT This order has been created and auto-finalized to support the import of images acquired without order. The clinical documentation to support these images can be found on the encounter that produced images. Provider Not In System IMG NON RAD IMAGI NG PROCEDURES IISD NA * (ABNORMAL) HPV with Genotyping, PCR, ThinPrep (10/12/2023 11:15 AM CLOTH CARRIER) HPV with Genotyping, ThinPrep, PCR Positive(A) Negative 10/14/2023 10:43 AM CLOTH CARRIER MKTO Comment: Positive for high risk HPV by nucleic acid amplification. Positive for one or more of the following high risk types: 16, 18, 31, 33, 35, 39, 45, 51, 52, 56, 58, 59, 66, and 68. See genotyping result. HPV High Risk type 16, PCR Negative Negative 10/14/2023 10:43 AM CLOTH CARRIER MKTO HPV High Risk type 18/45, PCR Negative Negative 10/14/2023 10:43 AM CLOTH CARRIER MKTO 10/12/2023 11:1 5 AM CLOTH CARRIER 10/13/2023 7:26 AM CLOTH CARRIER Jordan Galeana M.D. LAB MICROBIOLOGY - [facility] ORDERABLES [facility] [place] [address], [facility] MKTO [address] [place] [address] * (ABNORMAL) Lipid Panel (08/26/2023 9:11 AM CLOTH CARRIER) Triglycerides 112 mg/dL 08/26/2023 10:38 AM CLOTH CARRIER NPRG Comment: ----REFERENCE VALUE---- Normal: <150 mg/dL Borderline High: 150-199 mg/dL High: 200-499 mg/dL Very High: > or =500 mg/dL Cholesterol, Total 266(H) mg/dL 2023 10:38 AM CLOTH CARRIER NPRG Comment: ----REFERENCE VALUE---- Desirable: < 200 mg/dL Borderline High: 200 - 239 mg/dL High: > or = 240 mg/dL Cholesterol, LDL, Calculated 170(H) mg/dL 08/26/2023 10:38 AM CLOTH CARRIER NPRG Comment: ----REFERENCE VALUE---- Desirable: <100 mg/dL Above Desirable: 100-129 mg/dL Borderline High: 130-159 mg/dL High: 160-189 mg/dL Very High: >=190 mg/dL ----ADDITIONAL INFORMATION---- LDL cholesterol calculated using the Rhoades/NIH equation. Cholesterol, HDL 77 >=50 mg/dL 08/26/19 10:38 AM CLOTH CARRIER NPRG Cholesterol, Non-HDL, Calculated 189(H) mg/dL 08/26/2023 10:38 AM CLOTH CARRIER NPRG Comment: ----REFERENCE VALUE---- Desirable: <130 mg/dL Above Desirable: 130-159 mg/dL Borderline High: 160-189 mg/dL High: 190-219 mg/dL Very High: > or =220 mg/dL Fasting (8 HR or more) Yes 08/26/2023 10:12 AM CLOTH CARRIER NPRG Blood (Blood, Venous) 08/26/2023 9:11 AM CLOTH CARRIER 08/26/2023 10:12 AM CLOTH CARRIER Jordan Galeana M.D. LAB BLOOD ADD-ON [facility] [address] [place] [address], [place] NPRG [facility] [address] [place] [address] from Last 3 Months or Most Recently Relevant to Health Maintenance Care Teams Deicer Tester Relationship Specialty Start Date End Date Jordan Galeana M.D. [address] [place] [phone] PCP - General Family Medicine 09/17/23
--- OUTSIDE RECORDS SUMMARY | 2024-04-06 23:58 | XMS_ITS | Encounter Summary ---
Author Organization [facility] Address [address] [place] [address] Care Team Providers Care Sheet Metal Lay Out Worker Name Role Phone Jordan Galeana M.D. Primary Care Provider Reason for Visit * Reason Onset Date Comments external referral MRI 03/14/2024 Encounter Details Date Type Department Care Team (Latest Contact Info) Description 03/14/2024 Clinical Communication Department of Radiology in [place], [place] [address] [place] [phone] Zeynep Blackwood M.D. [address] [place] [address] external referral MRI Social History Tobacco Use Types Packs/Day Years Used Date Smoking Tobacco: Never Smokeless Tobacco: Never Alcohol Use Standard Drinks/Week Comments Yes 1 (1 standard drink = 0.6 oz pur e alcohol) [facility] Utilities Answer Date Recorded In the past 12 months has [employer], gas, oil, or water [employer] threatened to shut off services in your [...] your living situation today? I have a [facility] place to live 08/24/2023 Sex and Gender Information Value Date Recorded Sex Assigned at Female 08/24/2023 9:12 PM CRIME ANALYST Gender Identity Female 08/24/2023 9:12 PM CRIME ANALYST Sexual Orientation Straight 08/24/2023 9: 12 PM CRIME ANALYST documented as of this encounter Plan of Treatment Not on file documented as of this encounter Visit Diagnoses Not on filedocumented in this encounter Care Teams Sheet Metal Lay Out Worker Relationship Specialty Start Date End Date Jordan Galeana M.D. [address] [place] [address] PCP - General Family Medicine 09/17/23 documented as of this encounter
== END 2024-04-04 19:52 | disposition home or self-care (01) ==
LOC: AMB 04-06 23:56
PROVIDERS: PCP Family Medicine; Visit Provider Family Medicine
DX: R42 Dizziness and giddiness (principal); T58.91XA Toxic effect of carbon monoxide from unspecified source, accidental (unintentional), initial encounter; Y92.009 Unspecified place in unspecified non-institutional (private) residence as the place of occurrence of the external cause
CPT/HCPCS: A0998

== ENCOUNTER 2024-10-13 07:50 | Outpatient (CLI) | payer OTHER, SELFPAY ==
--- NOTE | 2024-10-13 09:01 | W.ANESCHARGE ---
Anesthesia Charges Start Date/Time Anesthesia Start Date: 10/13/24 Anesthesia Start Time: 08:30 Stop Date/Time Anesthesia Stop Date: 10/13/24 Anesthesia Stop Time: 09:03 Coding CPT Codes CPT Codes: ZULY QUICK INT NDSC NOS - 68123 ([id number]) P2 - PATIENT W/MILD SYST DISEASE, QX - SURGEON/PRESIDENT SVC W/ MD MED DIRECTION, QK - BODY AND FENDER MECHANIC APPRENTICE 2-4 CNCRNT ZULY PROC
--- NOTE | 2024-10-13 09:32 | W.ANESCHARGE ---
Anesthesia Charges Start Date/Time Anesthesia Start Date: 10/13/24 Anesthesia Start Time: 08:30 Stop Date/Time Anesthesia Stop Date: 10/13/24 Anesthesia Stop Time: 09:03 Coding CPT Codes CPT Codes: ZULY LWR INTST NDSC NOS - 48916 ([id number]) P2 - PATIENT W/MILD SYST DISEASE, QK - GROUP UNDERWRITER 2-4 CNCRNT ANES PROC, QX - DOG HANDLER SVC W/ MD MED DIRECTION
== END 2024-10-13 07:51 | disposition home or self-care (01) ==
LOC: OP CLINIC 07:51
PROVIDERS: PCP Family Medicine; Visit Provider Surgery
DX: Z12.11 Encounter for screening for malignant neoplasm of colon (principal); D12.2 Benign neoplasm of ascending colon; D12.3 Benign neoplasm of transverse colon; Z86.0100 Personal history of colon polyps, unspecified
CPT/HCPCS: 00811; 45380; 45385; 88305; J2704